=== PATIENT | female | born 1965 | race Caucasian/White ===

== ENCOUNTER 2022-11-18 20:05 | Emergency (ER) | payer BC ==
[~2022-11-18] VITALS: Ht 152.4 cm; Wt 73.9 kg
[2022-11-18 20:10] VITALS: BP_SYST 140; PULSE 60; RESP 16; TEMP 97.9; O2SAT 98
[2022-11-18] MEDS ORDERED: MORPHINE 4 MG INJ. 4 MG/ML VIAL IM ONE (21:00)
[2022-11-18] MEDS ORDERED: HYDR-3917 PO (21:51)
[2022-11-18 22:10] VITALS: BP_SYST 140; PULSE 60; RESP 16; TEMP 97.9; O2SAT 98
== END 2022-11-18 22:10 | disposition home or self-care (01) ==
LOC: SED 20:05
DX: M25.511 Pain in right shoulder (principal); I10 Essential (primary) hypertension; Z88.6 Allergy status to analgesic agent; Z79.899 Other long term (current) drug therapy
CPT/HCPCS: 99283; 96372; J2270